=== PATIENT | female | born 1990 | race Caucasian/White ===

== ENCOUNTER 2019-04-30 11:19 | Emergency (ER) | payer BC, OTHER ==
[2019-04-30 12:08] LABS: Urine Blood 3+ (NEG); Urine Glucose NEGATIVE (NEG); Urine Protein NEGATIVE (NEG); Urine Specific Gravity <1.005 (1.005-1.030)
[2019-04-30 12:08] LABS: Absolute Lymphocytes (CBC) 1.8 K/uL (0.7-4.9); Basophils % 0.4 % (0-1.3); Eosinophils % 1.3 % (0-4.4); Hematocrit 35.3 % (36.0-45.0); Lymphocytes % 24.3 % (15.3-44.8); MPV 9.3 fL (7.6-11.3); Monocytes % 9.1 % (3.3-12.3); RBC Red Blood Cell Count 3.79 M/uL (3.86-4.86)
[2019-04-30 12:19] LABS: BUN Blood Urea Nitrogen 8 mg/dL (7-18); Bicarbonate 25 mmol/L (21-32); Glucose Level 83 mg/dL (74-106); HCG, Quantitative 302 mIU/mL (1-3); Potassium 3.6 mmol/L (3.5-5.1); Sodium Level 142 mmol/L (136-145)
--- NOTE | 2019-04-30 13:24 | EDPHYS ---
Physician Documentation [facility] Name: Gi Booth Age: 29 yrs Sex: Female : 1990 Arrival Date: 04/30/2019 Time: 11:20 Bed 13 Private MD: ED Physician Mane Price HPI: 04/30 13:11 This 29 yrs old Female presents to ER via Ambulatory with complaints of kb Vaginal Bleeding, + Preg <12wks. 13:11 The patient presents to the emergency department with abdominal pain, vaginal bleeding, kb that is light, with clots. The estimated gestational age is 7 weeks. course: care: private OB physician, Dr. Trimble, the patient's last check was April 27, 2019. Previous pregnancies: in previous pregnancies patient has had. Associated signs and symptoms: Pertinent positives: abdominal pain, vaginal bleeding. The patient has not experienced similar symptoms in the past. The patient has been recently seen by a physician:. Had first OB appt last week with pap smear. States she started having spotting yesterday with large clots today. 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 - Social history:: Smoking status: Patient/guardian denies using tobacco. - Ebola Screening: : Patient negative for fever greater than or equal to 101.5 degrees Fahrenheit, and additional compatible Ebola Virus Disease symptoms Patient denies exposure to infectious person Patient denies travel to an Ebola-affected area in the 21 days before illness onset No symptoms or risks identified at this time. ROS: 12:56 Constitutional: Negative for fever, chills, and weight loss, ENT: Negative for injury, kb pain, and discharge, Neck: Negative for injury, pain, and swelling, Cardiovascular: Negative for chest pain, palpitations, and edema, Respiratory: Negative for shortness of breath, cough, wheezing, and pleuritic chest pain, Back: Negative for injury and pain, MS/Extremity: Negative for injury and deformity, Skin: Negative for injury, rash, and discoloration, Neuro: Negative for headache, weakness, numbness, tingling, and seizure. 12:56 Abdomen/GI: Positive for abdominal cramps. 12:56 : Positive for vaginal bleeding. Exam: 12:56 Constitutional: This is a well developed, well nourished patient who is awake, alert, kb and in no acute distress. Head/Face: Normocephalic, atraumatic. Chest/axilla: Normal chest wall appearance and motion. Nontender with no deformity. No lesions are appreciated. Cardiovascular: Regular rate and rhythm with a normal S1 and S2. No gallops, murmurs, or rubs. Normal PMI, no JVD. No pulse deficits. Respiratory: Lungs have equal breath sounds bilaterally, clear to auscultation and percussion. No rales, rhonchi or wheezes noted. No increased work of breathing, no retractions or nasal flaring. Abdomen/GI: Soft, non-tender, with normal bowel sounds. No distension or tympany. No guarding or rebound. No evidence of tenderness throughout. Back: No spinal tenderness. No costovertebral tenderness. Full range of motion. Skin: Warm, dry with normal turgor. Normal color with no rashes, no lesions, and no evidence of cellulitis. MS/ Extremity: Pulses equal, no cyanosis. Neurovascular intact. Full, normal range of motion. Neuro: Awake and alert, GCS 15, oriented to person, place, time, and situation. Cranial nerves II-XII grossly intact. Motor strength 5/5 in all extremities. Sensory grossly intact. Cerebellar exam normal. Normal gait. Vital Signs: 11:25 BP 127 / 83; Pulse 86; Resp 16; Temp 98.4(O); Pulse Ox 100% on R/A; Weight 47.17 kg; hj Height 5 ft. 1 in. (154.94 cm); Pain 1/10; 11:25 Body Mass Index 19.65 (47.17 kg, 154.94 cm) MDM: 11:27 Patient medically screened. kb 12:56 Data reviewed: vital signs, nurses notes. Data interpreted: Pulse oximetry: on room air kb is 100 %. Interpretation: normal. 13:23 Counseling: I had a detailed discussion with the patient and/or guardian regarding: the kb historical points, exam findings, and any diagnostic results supporting the discharge/admit diagnosis, lab results, radiology results, the need for outpatient follow up, a family practitioner, to return to the emergency department if symptoms worsen or persist or if there are any questions or concerns that arise at home. 04/30 11:37 Order name: Quantitative Hcg 04/30 11:37 Order name: Abo/rh Typing 04/30 11:37 Order name: Basic Metabolic Panel; Complete Time: 12:23 kb 04/30 11:37 Order name: CBC with Diff; Complete Time: 12:23 kb 04/30 11:38 Order name: HCG, Quantitative; Complete Time: 12:23 EDMA 04/30 12:05 Order name: Urine Dipstick--Ancillary (enter results) in 04/30 11:37 Order name: Urine Test (obtain specimen); Complete Time: 12:48 kb 04/30 12:24 Order name: US Transvaginal Ob; Complete Time: 14:39 kb 04/30 13:57 Order name: Rh Typing [facility] 04/30 13:57 Order name: Antibody Screen [facility] 04/30 13:57 Order name: Fetalscreen [facility] 04/30 13:57 Order name: Cord Rh type [facility] 04/30 13:57 Order name: Rhogam [facility] 04/30 11:37 Order name: IV Saline Lock; Complete Time: 12:03 kb 04/30 11:37 Order name: Labs collected and sent; Complete Time: 12:03 kb 04/30 11:37 Order name: NPO; Complete Time: 12:03 kb 04/30 11:37 Order name: Urine Dipstick-Ancillary (obtain specimen); Complete Time: 12:03 kb Administered Medications: 14:45 Drug: RhoGAM (Human) 300 mcg Route: IM; Site: right ventrogluteal; sg 15:12 Follow up: Response: No adverse reaction sg Disposition: 04/30/19 13:24 Discharged to Home. Impression: Threatened . - Condition is Stable. - Discharge Instructions: Threatened Miscarriage, [id number], Pelvic Rest. - Medication Reconciliation Form, Thank You Letter, Antibiotic Education, Prescription Opioid Use form. - Follow up: Emergency Department; When: As needed; Reason: Worsening of condition. Follow up: Private Physician; When: 2 - 3 days; Reason: Recheck today's complaints, Continuance of care, Re-evaluation by your physician. Signatures: Dispatcher [employer] Patrica Crane, MARIE CHEEK-Jaleel Matta RN RN David Lopez RN Chaparrita Hernandez RN RN Corrections: (The following items were deleted from the chart) 15:00 13:24 04/30/2019 13:24 Discharged to Home. Impression: Threatened . Condition hb is Stable. Forms are Medication Reconciliation Form, Thank You Letter, Antibiotic Education, Prescription Opioid Use. Follow up: Emergency Department; When: As needed; Reason: Worsening of condition. Follow up: Private Physician; When: 2 - 3 days; Reason: Recheck today's complaints, Continuance of care, Re-evaluation by your physician. kb
--- NOTE | 2019-04-30 13:24 | ER ---
Nurse's Notes [facility] Name: Gi Booth Age: 29 yrs Sex: Female : 1990 Arrival Date: 04/30/2019 Time: 11:20 Bed 13 Private MD: Diagnosis: Threatened Presentation: 04/30 11:22 Presenting complaint: Patient states: LMP- 03/14/19; we went to OB and they did a pap hj smear and Wednesday there was a mucus and today, i have a quarter sized blood clot; reports abd cramping; denies fever and chills;. Transition of care: patient was not received from another setting of care. Onset of symptoms was April 30, 2019. Risk Assessment: Do you want to hurt yourself or someone else? Patient reports no desire to harm self or others. Initial Sepsis Screen: Does the patient meet any 2 criteria? No. Patient's initial sepsis screen is negative. Does the patient have a suspected source of infection? No. Patient's initial sepsis screen is negative. Care prior to arrival: None. 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 - Social history:: Smoking status: Patient/guardian denies using tobacco. - Ebola Screening: : Patient negative for fever greater than or equal to 101.5 degrees Fahrenheit, and additional compatible Ebola Virus Disease symptoms Patient denies exposure to infectious person Patient denies travel to an Ebola-affected area in the 21 days before illness onset No symptoms or risks identified at this time. Screenin:40 Abuse screen: Denies threats or abuse. Denies injuries from another. Nutritional sg screening: No deficits noted. Tuberculosis screening: No symptoms or risk factors identified. Never had TB. Fall Risk None identified. Assessment: 11:40 General: Appears in no apparent distress. well groomed, well developed, well nourished, sg Behavior is calm, cooperative, appropriate for age. Pain: Denies pain. Neuro: Level of Consciousness is awake, alert, obeys commands, Oriented to person, place, time, Speech is normal, Facial symmetry appears normal. Cardiovascular: Capillary refill is brisk in bilateral fingers Patient's skin is warm and dry. Respiratory: Airway is patent Respiratory effort is even, unlabored, Respiratory pattern is regular, symmetrical, Denies cough, shortness of breath labored breathing, pain with respiration. GI: Abdomen is flat, non-distended, Reports normal bowel habits, tolerance of fluids, tolerance of food. : Reports vaginal bleeding that is bright red, with clots, light flow. EENT: No signs and/or symptoms were reported regarding the EENT system. Derm: Skin is pink, warm \\T\\ dry. Musculoskeletal: Circulation, motion, and sensation intact. Range of motion: intact in all extremities, Swelling absent. 13:00 Reassessment: Patient appears in no apparent distress at this time. Patient and/or sg family updated on plan of care and expected duration. Pain level reassessed. Patient is alert, oriented x 3, equal unlabored respirations, skin warm/dry/pink. Patient denies pain at this time. 14:11 Reassessment: Patient appears in no apparent distress at this time. Patient and/or hb family updated on plan of care and expected duration. Pain level reassessed. Patient is alert, oriented x 3, equal unlabored respirations, skin warm/dry/pink. pt reports " ready to be discharged." awaiting Rhogam IM from outside lab at this time, pt and pt family stated understanding, will continue to monitor. 14:45 Reassessment: Rhogam IM administered, see pt paper documentation for Lot and Exp. sg Vital Signs: 11:25 BP 127 / 83; Pulse 86; Resp 16; Temp 98.4(O); Pulse Ox 100% on R/A; Weight 47.17 kg; hj Height 5 ft. 1 in. (154.94 cm); Pain 10/20; 11:25 Body Mass Index 19.65 (47.17 kg, 154.94 cm) ED Course: 11:20 Patient arrived in ED. mr 11:21 Patrica Kang, [facility]. kb 11:21 Mane Price MD is Attending Physician. kb 11:24 Triage completed. hj 11:24 Arm band placed on right wrist. hj 11:35 Jaleel Perry, RN is Primary Nurse. sg 11:42 Patient has correct armband on for positive identification. Bed in low position. Call sg light in reach. Side rails up X2. Placed in gown. Pulse ox on. NIBP on. Warm blanket given. Head of bed elevated. 11:42 No provider procedures requiring assistance completed. Patient did not have IV access sg during this emergency room visit. 11:45 No provider procedures requiring assistance completed. sg 12:02 Inserted saline lock: 22 gauge in left antecubital area, using aseptic technique. Blood jb1 collected. 12:02 Initial lab(s) drawn, by me, sent to lab. Urine collected: clean catch specimen, clear, jb1 aga colored. 12:02 Missed attempt(s): 22 gauge in right antecubital area. jb1 13:21 US Transvaginal Ob In Process Unspecified. EDMS Administered Medications: 14:45 Drug: RhoGAM (Human) 300 mcg Route: IM; Site: right ventrogluteal; sg 15:12 Follow up: Response: No adverse reaction sg Outcome: 13:24 Discharge ordered by MD. kb 15:00 Patient left the ED. hb 15:00 Discharged to home ambulatory, with family. sg 15:00 Condition: good 15:00 Discharge instructions given to patient, Instructed on discharge instructions, follow up and referral plans. safety practices, Demonstrated understanding of instructions, follow-up care. Signatures: Dispatcher [employer] EDMS Harsha Carter jb1 Patrica Kang, EMPLOYEE TRAINING SPECIALIST-C EMPLOYEE TRAINING SPECIALIST-CkJaleel Hernandez, RN RN Parvin Pineda David Lopez, RN Chaparrita Hernandez RN RN hb
--- NOTE | 2019-04-30 14:30 | RAD REPORT ---
EXAM DESCRIPTION: US - Transvaginal OB - 04/30/2019 1:39 pm CLINICAL HISTORY: Abd cramping, ;Vaginal bleeding COMPARISON: OB Complete dated 05/12/2017 FINDINGS: The uterus is normal in size. The endometrium is thin without evidence of IUP. The maternal adnexa and ovaries are within normal limits. Normal Doppler blood flow was demonstrated to both ovaries. Mild free fluid in the pelvis. IMPRESSION: No IUP is demonstrated. In the setting of a mildly elevated HCG level, the findings woul d indicate a of unknown location. Recommend serial HCG measurements and follow-up ultrasoun d in 10-12 days.
[2019-04-30 15:15] VITALS: BP 127/83; TEMP 98.4; O2SAT 100
== END 2019-04-30 15:00 | disposition home or self-care (01) ==
LOC: ER 11:19
DX: O20.0 Threatened abortion (principal); Z3A.01 Less than 8 weeks gestation of pregnancy
CPT/HCPCS: 36415; 76817; 80048; 81003; 84702; 85025; 86850; 86900; 86901; 96372; 99284; J2790

== ENCOUNTER 2020-03-25 17:22 | Inpatient (IN) | payer BC, OTHER ==
[2020-03-25] MEDS ORDERED: CARBOPROST TROME 250 MCG/ML IM PRN (17:44)
[2020-03-25] MEDS ORDERED: METHYLERGONOVINE 0.2MG/ML AMP IM PRN (17:44)
[2020-03-25] MEDS ORDERED: PROMETHAZINE INJ 25 MG/ML AMP IM PRN (17:44)
[2020-03-25] MEDS ORDERED: BUTORPHANOL 1 MG/ML INJ IV PRN (17:44)
[2020-03-25] MEDS ORDERED: Ringers Lactate 1,000 ML IV PRN (17:44)
[2020-03-25] MEDS ORDERED: Ringers Lactate 1,000 ML IV SCH (18:00)
[2020-03-25] MEDS ORDERED: OXYTOCIN/LR 20 UNIT/1,000 ML BAG IV SCH ×2 (18:00→21:00)
[2020-03-25 18:31] LABS: Absolute Lymphocytes (CBC) 1.8 K/uL (0.7-4.9); Basophils % 0.3 % (0-1.3); Lymphocytes % 14.2 % (15.3-44.8); MPV 10.3 fL (7.6-11.3); RBC Red Blood Cell Count 3.84 M/uL (3.86-4.86)
[2020-03-25 18:34] LABS: Urine Appearance CLEAR; Urine Bilirubin NEGATIVE (NEG); Urine Blood NEGATIVE (NEG); Urine Color YELLOW; Urine Glucose NEGATIVE (NEG); Urine Protein NEGATIVE (NEG); Urine Specific Gravity <=1.005 (1.005-1.030); Urine Urobilinogen 0.2 mg/dL (0.2-1.0)
[2020-03-25 18:39] VITALS: BMI 24.5
[2020-03-25 18:41] LABS: Urine Microscopic Reflex NO UMIC
[2020-03-25] MEDS ORDERED: PENICILLIN G POT 5 MU/100 ML VIAL IV ONE (19:00)
[2020-03-25] MEDS ORDERED: LIDOCAINE 1% MPF 30 ML VIAL ONE (19:33)
[2020-03-25] MEDS ORDERED: FENTANYL CITR 100 MCG/2 ML ONE (19:36)
[2020-03-25] MEDS ORDERED: ROPIVACAINE HCL 0 ML ONE (19:36)
[2020-03-25] MEDS ORDERED: ROPIVACAINE HCL 100 ML IV ONE (19:37)
[2020-03-25] MEDS ORDERED: DOCUSATE NA/SENNA CONC 1 TAB PO PRN (20:57)
[2020-03-25] MEDS ORDERED: DIPHENHYDRAMINE 25 MG TAB/CAP PO PRN (20:57)
[2020-03-25] MEDS ORDERED: ACETAMINOPHEN 500 MG TAB PO PRN (20:57)
[2020-03-25] MEDS ORDERED: Oxycodone HCl/Acetaminophen 1 TAB TAB PO PRN ×2 (20:57)
[2020-03-25] MEDS ORDERED: BISACODYL 10 MG RECTAL SUPP RECT PRN (20:57)
[2020-03-25] MEDS ORDERED: PENICILLIN 2.5 MU in NA CHLORIDE 0.9% 100 ML IV SCH (21:00)
--- NOTE | 2020-03-25 23:22 | PREOPHP ---
Date of Admission: 03/25/2020 This is a 30-year-old, 3, para 1, at 38 weeks 1 day, followed antepartum without complication s. Noted to be Rh negative, has received RhoGAM during her . Noted to be anemic, has been taking extra iron. Noted to have positive beta strep test. She has had her first dose of penicillin an hour or more ago. Patient came in active labor. She was 3-4 cm when first evaluated. At last c heck, patient was 5 cm, which was not that long ago and now she is 7 cm, 100% effaced, 0 station. Ru pture of membranes, clear fluid. Dr. Harrell is here to get an epidural before the patient delivers. A dmission talk given. The patient is progressing very rapidly at this point. SIENA/DONATO Voice ID: [id number]
--- NOTE | 2020-03-26 00:01 | OP ---
Surgeon: Vamsi Trimble MD A 30-year-old, 3, para 1, 38 weeks 1 day, came in, in active labor. Received epidural anesth esia at 7 cm, went rapidly to complete. Rupture of membranes at 7 cm, clear fluid. Positive beta st rep screen. She had penicillin in 1 hour or more prior membrane rupture. Second stage of 20-25 rico yesica spontaneous vaginal delivery of an estimated 6 pound plus female Apgars 9 and 9. First degree la ceration repaired with 2-0 chromic. Schultze delivery of the placenta, which was inspected and noted to be intact and normal. 300 mL or less blood loss. The patient is Rh negative and has received Rh oGAM during her and will receive her second dose here in the hospital. Beta strep positive . Rubella immune. She received 1 dose of penicillin. Final Diagnoses: Intrauterine gestation, 38 weeks 1 day, spontaneous labor, vaginal delivery, epidur al anesthesia. Penicillin prophylaxis. RhoGAM pending. SIENA/SIDNEYL Voice ID: [id number] Report ID: [id number]
[2020-03-26 00:55] LABS: RPR (Rapid Plasma Reagin) NON-REACT (NON-REACT)
[2020-03-26] MEDS: IBUPROFEN 200 MG TAB PO PRN ×2 (06:34→18:49)
[2020-03-26] MEDS ORDERED: Tdap (Diph,Pertuss(Acell),Tet Vac) 0.5 ML SYR IMVAC ONE (07:48)
--- NOTE | 2020-03-26 08:07 | DS ---
Hospital Course: Gi Booth is a 30-year-old, 3, para 1, 38 weeks and 1 day, came in spontaneous labor. Subsequently, delivered 6 pounds, 11 ounces female, Apgars 9 and 9. Epidural ane sthesia. Small first-degree laceration repaired with 2-0 chromic. Schultze delivery of the placenta , inspected and noted to be intact and normal. 300 mL blood loss. Penicillin prophylaxis 1 dose. P ostpartum, afebrile, ambulating and voiding. She is Rh negative, will need RhoGAM and her Tdap admin istered before she leaves, which she wishes to get. No post epidural problems. Patient is having af ter pains. Requested analgesics, therefore will be given tramadol 50 mg 1 every 6 to 8 hours as need ed, 20 total. Thorough instructions given. Final Diagnoses: Intrauterine gestation, 38 weeks 1 day, spontaneous labor, vaginal delivery, epidur al anesthesia. Penicillin prophylaxis. RhoGAM and Tdap pending. SIENA/DONATO Voice ID: [id number] Report ID: [id number]
[2020-03-26] MEDS ORDERED: Rho(D) IG (HUMAN) 300 MCG SYR IM ONE (08:15)
[2020-03-26 19:14] VITALS: BP 116/67; TEMP 97.8
[2020-03-28 18:28] LABS: HBsAG Nonreactive (Nonreactive)
== END 2020-03-26 22:45 | disposition home or self-care (01) | DRG 807 ==
LOC: L&D 17:22 → 2ND-WC 17:34
PROVIDERS: ADMIT Specialist; ATTEND Specialist
PROC: 10907ZC Drainage of Amniotic Fluid, Therapeutic from Products of Conception, Via Natural or Artificial Opening (ICD-10-PCS; principal; 2020-03-25)
PROC: 10E0XZZ Delivery of Products of Conception, External Approach (ICD-10-PCS; 2020-03-25)
PROC: 0HQ9XZZ Repair Perineum Skin, External Approach (ICD-10-PCS; 2020-03-25)
PROC: 3E0234Z Introduction of Serum, Toxoid and Vaccine into Muscle, Percutaneous Approach (ICD-10-PCS; 2020-03-25)
DX: O26.893 Other specified pregnancy related conditions, third trimester (principal); Z37.0 Single live birth; O99.824 Streptococcus B carrier state complicating childbirth; O99.02 Anemia complicating childbirth; D64.9 Anemia, unspecified; Z67.91 Unspecified blood type, Rh negative; Z3A.39 39 weeks gestation of pregnancy
CPT/HCPCS: 36415; 81003; 85025; 85461; 86592; 86850; 86901; 87340; 90471; 90715; J0595; J2210; J2550; J2590; J2790; J2795; J3010; J7120